=== PATIENT | male | born 1965 | race Caucasian/White ===

== ENCOUNTER 2024-04-25 12:21 | Inpatient (IN) | payer OTHER ==
[2024-04-25] MEDS ORDERED: NALOXONE (NARCAN) HCL 4 MG/0.1 ML SPRAY NS PRN (13:39)
[2024-04-25] MEDS ORDERED: DICYCLOMINE HCL 10 MG CAPSULE PO PRN (13:39)
[2024-04-25] MEDS ORDERED: MAG HYDROX/AL HYDROX/SIMETH 30 ML UNIT-DOSE CUP PO PRN (13:39)
[2024-04-25] MEDS ORDERED: BENZONATATE 200 MG CAPSULE PO PRN (13:39)
[2024-04-25] MEDS ORDERED: hydrOXYzine PAMOATE 25 MG CAPSULE (FP) PO PRN (13:39)
[2024-04-25] MEDS ORDERED: guaiFENesin 600 MG TABLET.ER (FP) PO PRN (13:39)
[2024-04-25] MEDS ORDERED: BENZOCAINE/MENTHOL (CHLORASEPTIC ) LOZENGE MM PRN (13:39)
[2024-04-25] MEDS ORDERED: BISMUTH SUBSALICYLATE 524 MG/30 ML PO PRN (13:39)
[2024-04-25] MEDS ORDERED: LOPERAMIDE HCL 2 MG CAPSULE PO PRN (13:39)
[2024-04-25] MEDS ORDERED: MAGNESIUM HYDROX 2400MG/30ML ORAL SUSPENSION 30 ML CUP PO PRN (13:39)
[2024-04-25] MEDS ORDERED: IBUPROFEN 400 MG TABLET (FP) PO PRN (13:39)
[2024-04-25] MEDS ORDERED: POLYETHYLENE GLYCOL (HEALTHYLAX) 3350 17 GM PACKET PO PRN (13:39)
[2024-04-25] MEDS ORDERED: diazePAM 5 MG TABLET ONE (17:01)
[2024-04-25] MEDS: diazePAM 5 MG TABLET PO SCH (17:03)
[2024-04-25 17:11] VITALS: BMI 23.3
[2024-04-25] MEDS: METHOCARBAMOL 500 MG TABLET PO PRN (18:12)
[2024-04-25] MEDS: NICOTINE POLACRILEX 2 MG GUM BUC PRN (18:27)
[2024-04-25] MEDS: MELATONIN 5 MG TABLETS PO SCH (22:40)
[2024-04-25] MEDS: THIAMINE 100 MG TABLET PO SCH (22:40)
[2024-04-26] MEDS: ACETAMINOPHEN 325 MG TABLET (FP) PO PRN (05:34)
[2024-04-26] MEDS: PRENATAL VITAMINS W/ FOLIC ACID TABLET (FP) PO SCH (10:10)
[2024-04-26 11:18] LABS: HEMATOCRIT 40.2 % (35.4-49); HEMOGLOBIN 14.1 GM/dL (11.7-16.9); MCH 31.4 pg (25.7-33.7); MCHC 34.9 g/dl (32.0-35.9); MEAN PLT VOLUME 10.1 fl (7.5-11.1); PLATELET COUNT 150 10^3/uL (134-434); RBC 4.47 M/mm3 (4.00-5.60); RDW 13.4 % (11.9-15.9); WHITE BLOOD COUNT 5.3 K/mm3 (4.0-10.0)
[2024-04-26 11:30] LABS: POTASSIUM 3.8 mmol/L (3.5-5.1)
[2024-04-26 11:34] LABS: ALBUMIN 3.6 g/dl (3.4-5.0); BLOOD UREA NITROGEN 22.8 mg/dL (7-18); CALCIUM 9.1 mg/dL (8.5-10.1)
[2024-04-26 11:37] LABS: CREATININE 0.9 mg/dL (0.55-1.3)
[2024-04-26 11:39] LABS: BILIRUBIN,TOTAL 0.5 mg/dL (0.2-1); TOT PROT 6.7 g/dl (6.4-8.2)
[2024-04-26] MEDS: FLU VACCINE (FLULAVAL) PF 45 MCG/0.5 ML SYRINGE 2024-2025 IM ONE (13:06)
[2024-04-26] MEDS ORDERED: QUEtiapine FUMARATE 100 MG TABLET (FP) PO SCH (22:00)
[2024-04-26] MEDS: PRAZOSIN HCL 1 MG CAPSULE PO SCH (22:03)
[2024-04-26] MEDS: QUEtiapine FUMARATE 50 MG TABLET PO SCH (22:05)
[2024-04-26] MEDS: GABAPENTIN 100 MG CAPSULE PO SCH (22:05)
[2024-04-27] MEDS: diazePAM 5 MG TABLET PO SCH (05:45)
[2024-04-27] MEDS: diazePAM 5 MG TABLET PO PRN (10:29)
[2024-04-27] MEDS: IBUPROFEN 600 MG TABLET (FP) PO PRN (22:39)
[2024-04-28] MEDS: diazePAM 5 MG TABLET PO SCH (05:46)
[2024-04-28] MEDS: ONDANSETRON *ODT* 4 MG TABLET SL PRN (18:57)
[2024-04-28] MEDS: TRIMETHOBENZAMIDE HCL 200MG/2ML INJ IM ONE (20:00)
[2024-04-29 05:59] VITALS: RESP 18
[2024-04-29] MEDS: diazePAM 5 MG TABLET PO ONE (06:00)
[2024-04-29] MEDS: NALOXONE (NYS OPIOID OVERDOSE PROGRAM) 4 MG/0.1 ML SPRAY NS PRN (09:02)
[2024-04-29 09:59] VITALS: BP 128/74; PULSE 71; TEMP 98.2
== END 2024-04-29 09:20 | disposition home or self-care (01) | DRG 897 ==
LOC: YASAS 12:21 → Y3N 17:11
PROVIDERS: ADMIT Allergy & Immunology; ATTEND Surgery
PROC: HZ2ZZZZ Detoxification Services for Substance Abuse Treatment (ICD-10-PCS; principal; 2024-04-25)
DX: F10.230 Alcohol dependence with withdrawal, uncomplicated (principal); F17.210 Nicotine dependence, cigarettes, uncomplicated; F19.24 Other psychoactive substance dependence with psychoactive substance-induced mood disorder; F31.9 Bipolar disorder, unspecified; F43.10 Post-traumatic stress disorder, unspecified; G47.00 Insomnia, unspecified; M17.12 Unilateral primary osteoarthritis, left knee; Z88.8 Allergy status to other drugs, medicaments and biological substances
CPT/HCPCS: 36415; 71046-TC-FY; 80053; 80307; 85027; 86780; 93005; 93010; Q0162